=== PATIENT | female | born 2000 | race American Indian/Alaskan Native ===

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

== ENCOUNTER 2021-05-02 14:51 | Emergency (ER) | payer OTHER ==
[2021-05-02 15:24] VITALS: BP 111/56
[2021-05-02] MEDS ORDERED: SODIUM CHLORIDE 0.9% 1000 ML 1,000 ML IV ONE (16:56)
--- NOTE | 2021-05-02 16:59 | Emergency Department Report ---
ED General Adult HPI - General Chief complaint: Dizziness Stated complaint: HEAD PAIN, DIZZY, PAIN UNDER BREAST Time Seen by Provider: 05/02/21 16:40 Source: patient Mode of arrival: Ambulatory Limitations: No Limitations - History of Present Illness Initial comments: Patient presents with a prolonged history of ongoing vague symptoms. She states that she has felt dizzy and lightheaded for a month. This was gradual onset. It happens more so when she stands but not every time that she stands. Sometimes it happens when she sits. She has a feeling of being off balance and falling. She has not actually fallen and hurt herself. She has been having occasional pain in the left chest that radiates both into the upper chest and into the breast. There is no trauma. She does not know if this is her costochondritis that is acting up or not. There does not appear to be any soreness in her chest or breast according to her self exam. Patient has had some degree of congestion and does report having seasonal allergies. She has not had any significant cough or fever. There has been no vomiting or diarrhea. She has no dysuria. Because she has had the symptoms for a month, she decided to come here for evaluation today. Severity scale (0 -10): 4 - Related Data Previous Rx's Medication Instructions Recorded Last Taken Type Butalb/Acetamin/Caff 50-325-40 1 - 2 tab PO Q6HR PRN #15 tab 04/09/20 Unknown Rx [Fioricet 50-325-40] Cyclobenzaprine [Flexeril] 10 mg PO Q8H PRN #21 tablet 04/09/20 Unknown Rx Ibuprofen [Motrin] 800 mg PO Q8HR PRN #20 tablet 05/02/21 Unknown Rx Meclizine [Antivert] 25 mg PO TID PRN #20 tablet 05/02/21 Unknown Rx Allergies Allergy/AdvReac Type Severity Reaction Status Date / Time ciprofloxacin [From Cipro] Allergy Itching Verified 05/02/21 15:14 ED Review of Systems ROS: Stated complaint: HEAD PAIN, DIZZY, PAIN UNDER BREAST Other details as noted in HPI Comment: All other systems reviewed and negative Constitutional: denies: fever Eyes: denies: vision change ENT: denies: throat pain Respiratory: see HPI Cardiovascular: as per HPI Endocrine: denies: unexplained weight loss Gastrointestinal: denies: abdominal pain Genitourinary: denies: dysuria Musculoskeletal: denies: back pain Skin: denies: rash Neurological: as per HPI Hematological/Lymphatic: denies: easy bruising ED Past Medical Hx - Past Medical History Hx GERD: Yes Additional medical history: ANXIETY/ SKULL MALFORMATION / COSTOCHONDIRA - Surgical History Past Surgical History?: No - Family History Family history: no significant - Social History Smoking Status: Never Smoker - Medications Home Medications: Home Medications Medication Instructions Recorded Confirmed Last Taken Type Butalb/Acetamin/Caff 50-325-40 1 - 2 tab PO Q6HR PRN #15 tab 04/09/20 Unknown Rx [Fioricet 50-325-40] Cyclobenzaprine [Flexeril] 10 mg PO Q8H PRN #21 tablet 04/09/20 Unknown Rx Ibuprofen [Motrin] 800 mg PO Q8HR PRN #20 tablet 05/02/21 Unknown Rx Meclizine [Antivert] 25 mg PO TID PRN #20 tablet 05/02/21 Unknown Rx ED Physical Exam - General Limitations: No Limitations, Other (Pulse ox noted and normal) General appearance: alert, in no apparent distress, obese - Head Head exam: Present: atraumatic, normocephalic, normal inspection - Eye Eye exam: Present: normal appearance, EOMI. Absent: scleral icterus - ENT ENT exam: Present: normal exam, normal orophraynx, mucous membranes moist, normal external ear exam - Neck Neck exam: Present: normal inspection. Absent: meningismus - Respiratory Respiratory exam: Present: normal lung sounds bilaterally. Absent: respiratory distress - Cardiovascular Cardiovascular Exam: Present: regular rate, normal rhythm - GI/Abdominal GI/Abdominal exam: Present: soft. Absent: tenderness - Extremities Exam Extremities exam: Present: normal capillary refill - Back Exam Back exam: Absent: CVA tenderness (R), CVA tenderness (L) - Neurological Exam Neurological exam: Present: alert, oriented X3, CN II-XII intact, normal gait, reflexes normal, other (There is no pronator drift or dysdiadochokinesia. NIH score is 0.). Absent: motor sensory deficit - Psychiatric Psychiatric exam: Present: normal affect, normal mood - Skin Skin exam: Present: warm, dry ED Course Vital Signs 05/02/21 15:24 Temperature 98.6 F Pulse Rate 86 Respiratory 18 Rate Blood Pressure 111/56 [Right] O2 Sat by Pulse 99 Oximetry - Reevaluation(s) Reevaluation #1: 05/02/21 16:59 IV and labs ordered. CT was ordered. Old records reviewed. Reevaluation #2: 05/02/21 23:36 Work-up was complete and the patient was discharged ED Medical Decision Making - Lab Data Result diagrams: 05/02/21 17:32 05/02/21 17:32 - Medical Decision Making Patient presented with lightheadedness and dizziness as well as chest pain and a headache. She did not have focal neurologic findings or deficit suggestive of acute stroke. This did not appear to be a central vertigo type process. She did not have any vertiginous symptoms whatsoever. Patient did not have any fever there was suggest infection. Breast exam was completed by the ROBER. There was no reported pathology noted on that. Patient does not have neurologic findings suggestive of stroke. She was treated symptomatically and referred for outpatient evaluation. Critical Care Time: No Critical care attestation.: If time is entered above; I have spent that time in minutes in the direct care of this critically ill patient, excluding procedure time. ED Disposition Clinical Impression: Lightheaded, Left-sided chest pain Headache Qualifiers: Headache type: unspecified Headache chronicity pattern: acute headache Intractability: not intractable Qualified Code(s): R51.9 - Headache, unspecified Disposition: 01 HOME / SELF CARE / HOMELESS Is pt being admited?: No Condition: Stable Instructions: Nonspecific Chest Pain, Adult, Pain Without a Known Cause, Dizziness, Chest Wall Pain Additional Instructions: DRINK WATER. SEE YOUR DOCTOR FOR RECHECK. RETURN FOR PROBLEMS. REST THIS WEEKEND. Prescriptions: Meclizine [Antivert] 25 mg PO TID PRN #20 tablet PRN Reason: Vertigo Ibuprofen [Motrin] 800 mg PO Q8HR PRN #20 tablet PRN Reason: Pain , Severe (7-10) Referrals: ANDERS BARRERA MD [Primary Care Provider] - 3-5 Days NEHEMIAS BARTH MD [Staff Physician] - 3-5 Days
[2021-05-02 17:58] LABS: Hematocrit 36.4 % (30.3-42.9); Hemoglobin 11.6 gm/dl (10.1-14.3); Mean Corpuscular HGB Conc 32 % (30-34); Mean Corpuscular Volume 80 fl (79-97); Platelet Count 454 K/mm3 (140-440); Red Blood Count 4.55 M/mm3 (3.65-5.03); Red Cell Distribution Width 15.3 % (13.2-15.2)
[2021-05-02 18:13] LABS: Blood Urea Nitrogen 8 mg/dL (7-17); Calcium 9.3 mg/dL (8.4-10.2); Hemolysis Index 12
[2021-05-02 18:22] LABS: BUN/Creatinine Ratio 13
--- NOTE | 2021-05-02 19:08 | Cat Scan Report ---
CT HEAD WITHOUT CONTRAST INDICATION / CLINICAL INFORMATION: Dizzy, lightheaded, headache, Chiari malformation. TECHNIQUE: All CT scans at this location are performed using CT dose reduction for ALARA by means of automated exposure control. COMPARISON: 04/09/20 FINDINGS: HEMORRHAGE: None. EXTRA-AXIAL SPACES: Normal in size and morphology for the patient's age. VENTRICULAR SYSTEM: Normal in size and morphology for the patient's age. CEREBRAL PARENCHYMA: No significant abnormality. No acute territorial infarct. MIDLINE SHIFT / HERNIATION: None. CEREBELLUM / BRAINSTEM: Mild cerebellar tonsillar ectopia has not changed. ORBITS: Normal as visualized. SOFT TISSUES: No significant abnormality. SKULL: No significant abnormality. PARANASAL SINUSES / MASTOID AIR CELLS: Normal as visualized. ADDITIONAL FINDINGS: None. IMPRESSION: No acute abnormality or significant change. Signer Name: Blayne English MD Signed: 05/02/2021 7:03 PM Workstation Name: [id number]
== END 2021-05-02 19:05 | disposition home or self-care (01) ==
LOC: ED 14:51
DX: R42 Dizziness and giddiness (principal); R07.89 Other chest pain; K21.9 Gastro-esophageal reflux disease without esophagitis; Z98.890 Other specified postprocedural states; Z79.899 Other long term (current) drug therapy; Z88.1 Allergy status to other antibiotic agents
CPT/HCPCS: 36415; 70450; 80048; 85027; 99284